=== PATIENT | male | born 1995 | race Hispanic/Latino ===

== ENCOUNTER 2017-09-15 09:06 | Observation (INO) | payer OTHER ==
[~2017-09-15] VITALS: Ht 160 cm; Wt 61.2 kg
[2017-09-15 09:34] LABS: BASO % 0.2 % (0.0-1.0); IMMATURE GRANULOCYTE % 0.5 % (0-0); LYMPH # 0.6 10^3/uL (1.5-6.5); MEAN CORPUSCULAR HEMOGLOBIN 29.3 pg (27.0-33.0); MEAN CORPUSCULAR HGB CONC 32.5 g/dl (32.0-36.5); MONO # 1.2 10^3/uL (0.0-0.8); MONO % 7.6 % (0.0-5.0); NEUTROPHILS # 13.3 10^3/uL (1.8-7.7); NEUTROPHILS % 87.7 % (36.0-66.0); PLATELET COUNT, AUTOMATED 163 10^3/uL (150-450); WHITE BLOOD COUNT 15.1 10^3/uL (4.0-10.0)
[2017-09-15 09:59] LABS: ANION GAP 6 MEQ/L (8-16); BLOOD UREA NITROGEN 15 MG/DL (7-18); CALCIUM LEVEL 8.6 MG/DL (8.5-10.1); CARBON DIOXIDE LEVEL 26 MEQ/L (21-32); CHLORIDE LEVEL 107 MEQ/L (98-107); CREATININE FOR GFR 1.95 MG/DL (0.70-1.30); FREE T4 1.32 NG/DL (0.78-1.33); GLUCOSE, FASTING 108 MG/DL (70-105); POTASSIUM SERUM 4.9 MEQ/L (3.5-5.1); SODIUM LEVEL 139 MEQ/L (136-145)
[2017-09-15] MEDS ORDERED: NS 1,000 ML IV ONE (10:15)
--- NOTE | 2017-09-15 10:15 | REP ---
Portable chest: Single view. History: Chest pain. Comparison study: No comparison. Findings: EKG monitoring electrodes overlie the chest. Lungs are well inflated and clear. Heart is not enlarged. Pulmonary vasculature is not increased. Impression: No significant abnormality. No active disease. Signed by Perry Solitario MD 09/15/2017 10:52 A
[2017-09-15 11:52] LABS: METHADONE URINE NEGATIVE (NEGATIVE)
[2017-09-15 13:55] LABS: ANION GAP 6 MEQ/L (8-16); BLOOD UREA NITROGEN 14 MG/DL (7-18); CALCIUM LEVEL 8.2 MG/DL (8.5-10.1); CARBON DIOXIDE LEVEL 28 MEQ/L (21-32); CHLORIDE LEVEL 109 MEQ/L (98-107); CREATININE FOR GFR 1.38 MG/DL (0.70-1.30); GLUCOSE, FASTING 93 MG/DL (70-105); POTASSIUM SERUM 4.9 MEQ/L (3.5-5.1); SODIUM LEVEL 143 MEQ/L (136-145)
[2017-09-15] MEDS ORDERED: BICILLIN L-A 2,400,000 UNIT/4 ML SYRINGE (J0561-24)PENICILLIN G BENZATINE IM ONE (14:45)
[2017-09-15] MEDS ORDERED: BICILLIN-CR 1,200,000 UNITS/2ML SYRINGE (J0558-12) IM ONE ×2 (15:00)
[2017-09-15] MEDS ORDERED: IBUPOTC PO (15:50)
--- NOTE | 2017-09-15 16:18 | HPEPDOC ---
General Date of Admission 09/15/17 Primary Care Physician: A Chief Complaint The patient is a 21-year-old male admitted with a reason for visit of Chest Pain. History of Present Illness PATIENT IS AN [employer]IVE [employer] ON PCP IS [facility] Mr. 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 He just drove from [place] where he was vacationing and got in late last night. Apparently he acutely woke up this AM with all of these symptoms. At [facility] he was noted to have an elevated heart rate as per the patient "into the 200s", he was transferred to our facility and en route was given adenosine 6 mg then 12 mg by EMS which apparently broke the sinus tachycardia. In the emergency department his EKG demonstrated normal sinus rhythm in the 80s, the patient's blood pressure was a bit hypotensive upon presentation 89/46 but improved after a bolus of normal saline to 128/63. On questioning the patient states that he does not have any chest discomfort or feelings of a racing heart but now describes a headache in the back of his head and states that he still feels a little bit lightheaded. He did not sustain LOC during these events and this has never happened to him before. The patient denies any history of recreational drug use, denies taking any sort of supplement, denies taking any medication at all. He quit smoking 2 years ago and does not use an alternative form of tobacco, he does not drink alcohol and he does not see a doctor routinely. He has no family history of cardiac events aside from his father having a stroke and paternal GF dieing of [place], no one has suddenly of unexpected causes in his family. 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 He also tells me he's had a sore throat for the past couple days, it is also red and associated with painful swallowing. He denies any problems with urinating, denies blood in his urine, increased frequency or pain with urination , describes normal bowel movements with no diarrhea or constipation, no pain with defecation or blood in his stool. Denies muscle aches, chills or fevers. He states he is no longer nauseous and he is able to eat without vomiting. He has no recent sick contacts and has not traveled outside the country. 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 Dyspnea, Edema Gastrointestinal: Reports: Nausea, Vomiting, Denies: Abdominal Pain, Diarrhea, Constipation, Melena, Hematochezia Genitourinary: Denies: Dysuria Musculoskeletal: Denies: Neck Pain Neurological: Denies: Weakness, Numbness, Incoordination, Change in speech Psych: Reports: Mood Normal Physical Examination General Exam: Positive: Alert, Cooperative, No Acute Distress Eye Exam: Positive: PERRLA, Conjunctiva & lids normal, EOMI, Negative: Sclera icteric ENT Exam: Positive: Atraumatic, Mucous membr. moist/pink, Pharynx Normal, Tongue Midline, Nares Patent, Negative: Pharyngeal Edema Neck Exam: Positive: Supple Chest Exam: Positive: Clear to auscultation, Normal air movement, Negative: Rales, Rhonchi, Wheezing, Diminished Heart Exam: Positive: Rate Normal, Normal S1, Normal S2, Negative: Tachycardic, Bradycardic, Gallops, Murmurs, Rubs Telemetry: Positive: No significant arrhythmia Abdomen Exam: Positive: Normal bowel sounds, Soft, Negative: Tenderness, Hepatospenomegaly Extremity Exam: Positive: Normal pulses, Negative: Clubbing, Cyanosis, Edema, Tenderness, Swelling Skin Exam: Negative: Rash Psych Exam: Positive: Mental status NL Vital Signs Vital Signs Date Time Temp Pulse Resp B/P (MAP) Pulse Ox O2 Delivery O2 Flow Rate FiO2 09/15/17 14:39 97.9 79 16 100 09/15/17 14:24 128/63 (84) 09/15/17 09:36 Room Air Laboratory Data Labs 24H Laboratory Tests 2 09/15/17 09:26: Immature Granulocyte % (Auto) 0.5H, White Blood Count 15.1H, Red Blood Count 4.20L, Hemoglobin 12.3L, Hematocrit 37.8L, Mean Corpuscular Volume 90.0, Mean Corpuscular Hemoglobin 29.3, Mean Corpuscular Hemoglobin Concent 32.5, Red Cell Distribution Width 12.0, Platelet Count 163, Neutrophils (%) (Auto) 87.7H, Lymphocytes (%) (Auto) 4.0L, Monocytes (%) (Auto) 7.6H, Eosinophils (%) (Auto) 0.0, Basophils (%) (Auto) 0.2, Neutrophils # (Auto) 13.3H, Lymphocytes # (Auto) 0.6L, Monocytes # (Auto) 1.2H, Eosinophils # (Auto) 0.0, Basophils # (Auto) 0.0 , Immature Granulocyte # (Auto) 0.1H, Nucleated Red Blood Cells % (auto) 0.0, Anion Gap 6L, Blood Urea Nitrogen 15, Creatinine 1.95H, Sodium Level 139, Potassium Level 4.9, Chloride Level 107, Carbon Dioxide Level 26, Calcium Level 8.6, Total Creatine Kinase 119, Magnesium Level 2.0, Creatine Kinase MB 4.4H, Creatine Kinase MB Relative Index 3.69, Troponin I 0.62H, Thyroid Stimulating Hormone (TSH) 1.020, Free Thyroxine 1.32 09/15/17 11:08: Urine Amphetamines Screen NEGATIVE, Urine Benzodiazepines Screen NEGATIVE, Urine Opiates Screen NEGATIVE, Urine Methadone Screen NEGATIVE, Urine Barbiturates Screen NEGATIVE, Urine Phencyclidine Screen NEGATIVE, Urine Cocaine Metabolite Screen NEGATIVE, Urine Cannabinoids Screen NEGATIVE 09/15/17 12:57: Anion Gap 6L, Blood Urea Nitrogen 14, Creatinine 1.38H, Sodium Level 143, Potassium Level 4.9, Chloride Level 109H, Carbon Dioxide Level 28, Calcium Level 8.2L, Total Creatine Kinase 208, Creatine Kinase MB 15.4H, Creatine Kinase MB Relative Index 7.40H, Troponin I 2.50#*H CBC/BMP Laboratory Tests 09/15/17 09:26 Red Blood Count 4.20 L, Mean Corpuscular Volume 90.0, Mean Corpuscular Hemoglobin 29.3, Mean Corpuscular Hemoglobin Concent 32.5, Red Cell Distribution Width 12.0, Neutrophils (%) (Auto) 87.7 H, Lymphocytes (%) (Auto) 4.0 L, Monocytes (%) (Auto) 7.6 H, Eosinophils (%) (Auto) 0.0, Basophils (%) ( Auto) 0.2, Neutrophils # (Auto) 13.3 H, Lymphocytes # (Auto) 0.6 L, Monocytes # (Auto) 1.2 H, Eosinophils # (Auto) 0.0, Basophils # (Auto) 0.0, Calcium Level 8.6, Total Creatine Kinase 119 09/15/17 12:57 Calcium Level 8.2 L, Total Creatine Kinase 208 Assessment/Plan 21 year-old male presents to the emergency department with complaint of chest pain and racing heart rate. 1. Chest pain with palpitations -possibly secondary to pericarditis -The patient's initial EKG a [facility] showed heart rate of 199, EKG was with a lot of artifact, do not think that this was real. -EKG in our emergency department demonstrated normal sinus rhythm with rates in the 80s, no concern for active ischemia -Initial troponin was 0.6 however repeat troponin was 2.50 -Patient received 1 L bolus normal saline in the emergency department for hypotension which brought him to 128/63 -We'll obtain echocardiogram and serial EKG, repeat EKG in a.m. -Trend cardiac markers -We'll begin metoprolol tartrate 12.5 mg every 6 hours and aspirin 81 daily -Admit to telemetry, observation 24 hours -He did just drive from [place], his kidney function is a bit off, will hold on CTA for now and obtain order d-dimer for now, further recommendation once results are in - Case discussed with Cardiology; troponin elevation unlikely to be related to coronary disease, more likely perimyocarditis; will not need transfer for cardiac catheterization - Cardiology (Dr. Begum) will be following; appreciate their input 2. Sore throat - Positive for strep -Patient received one dose of penicillin G in ED, will continue penicillin V 500 twice a day for a total of 10 days 3. Elevated troponin -Do not believe that this is ischemic in nature; unlikely coronary artery disease; will not need cardiac cath at this time -Could possibly be secondary to pericarditis -Echocardiogram, repeat cardiac markers, repeat EKG in a.m., telemetry observation 24 hours -Cardiology consulted , greatly appreciate their recommendations 4. TARA - Creatine elevated, 1.95 -1.95 now 1.38 - suspect 2/2 dehydration -c/w fluid hydration, NS @ 100 -avoid nephrotoxic meds Plan / VTE VTE Prophylaxis Ordered?: Yes GME ATTESTATION GME ATTESTATION My faculty preceptor for this patient encounter was physically present during the encounter and was fully available. All aspects of the patient interview, examination, medical decision making process, and medical care plan development were reviewed and approved by the faculty preceptor. The faculty preceptor is aware and concurs with the plan as stated in the body of this note and will attest to such by his/her cosignature. ATTENDING NOTE I, Santana Beaulieu, have both independently examined this patient as well as reviewed the documentation. I have discussed in detail with the resident the findings and plan of treatment as documented in the residents documentation. I will continue to follow the patient and offer further guidance to the patients care as necessary during this hospital stay. MCKAYLA SMALL DO Sep 15, 2017 16:18 SANTANA BEAULIEU MD Sep 19, 2017 15:50
[2017-09-15] MEDS ORDERED: ACETAMINOPHEN TAB 650MG DOSE (2X325MG) PO PRN (17:15)
[2017-09-15] MEDS ORDERED: METOPROLOL TART 25 MG TABLET PO ONE (18:00)
[2017-09-15] MEDS: ASPIRIN 81 MG ENTERIC TAB PO SCH (18:06)
[2017-09-15] MEDS: NS 1,000 ML IV SCH (18:07)
--- NOTE | 2017-09-15 18:55 | CR ---
DATE OF CONSULTATION: INDICATION: Elevated troponin SVT. 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 He felt very uncomfortable but tried to go back to sleep. But when his symptoms persisted and he had additional symptoms of nausea with vomiting and also shortness of breath and headache he eventually went to be checked at the [facility]. He was found to have tachycardia and ventricular rate between 170-200 beats per minute. Eventually though EMS was involved and he received adenosine that broke the rhythm and he converted into sinus rhythm. On the initial presentation to the ER, he was somewhat hypotensive, blood pressure 89/46, but after getting some bolus of normal saline rapidly improved. He tells me that when he received adenosine he had a sensation of chest pain but after it resolved. He felt immediately better and he now feels tired. He denies any residual chest discomfort and does not feel short of breath. His last few days were unremarkable other than him driving from [place]. It took him approximately 2 days and he slept in a car intermittently. He denies drinking any energy drinks other than a few cups of coffee. He also has had symptoms of sore throat. 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 No significant past medical history. MEDICATIONS: None. ALLERGIES: No allergies. PAST MEDICAL HISTORY: Negative. PAST SURGICAL HISTORY: Negative. FAMILY HISTORY: His father suffered a stroke in his mid 50s and his paternal grandfather had heart attack. SOCIAL HISTORY: The patient does not smoke and does not drink alcohol. On the review of systems he denies any recent fever, chills, nausea or vomiting, dyspnea, chest pain, palpitations, prior syncope or prior palpitations. All until history of present illness. PHYSICAL EXAMINATION: He is a pleasant young man who appears actually younger than his calendar age, alert and oriented and appropriate. No distress. In almost completely in horizontal position was actually sleeping when I walked in. Blood pressure 128/63, heart rate currently in 80s, sinus rhythm. Saturation is in high 90s up to 100% on room air. JVP is not up. I do not appreciate carotid bruit. No goiter. No cervical lymphadenopathy. Lungs are clear to auscultation with good air movement. Heart exam reveals nondisplaced precordial impulse. I do not appreciate any rub, gallop or murmur. Abdomen: Soft, nontender. He has no rebound tenderness. No peripheral edema. Good peripheral pulses. No skin lesions. Neurologically intact. LABORATORY: CBC reveals WBC count 15.1, hemoglobin 12.3, hematocrit 37.8 and platelet count 163,000. Basic metabolic panel on admission reveal normal electrolytes, but creatinine 1.95, troponin on admission was 0.62 with CK 119 and CK-MB 4.4 Followup 3 hours later revealed improvement of creatinine after bolus to 1.38 but the troponin is now up to 2.5. Total CK is 208 and CK-MB 15. TSH was normal. Chest x-ray was unremarkable. D-dimer is elevated. ECG from the initial presentation reveals narrow complex tachycardia with no discernible P-wave activity. In the emergency room he had brief run of 10 beats of wide complex tachycardia most likely a accelerated junctional tachycardia or accelerated junctional rhythm, asymptomatic. The ECG after conversion to sinus rhythm is unremarkable other than some minimal repolarization abnormalities suggestive of early repolarization. ASSESSMENT/PLAN: Mr. Cloud is a 21-year-old previously healthy man who presents with supraventricular tachycardia with a ventricular rate approaching 200 beats per minute of approximately 4 hours duration (patient reports onset 04:00 a.m., termination around 10-10:30). He was quite symptomatic with dizziness, sensation of chest discomfort and shortness of breath and almost near syncopal sensation. There was associated nausea and vomiting. After conversion to sinus mechanism he is back to normal other than feeling exhausted. What is surprising is the degree of troponin elevation which seems to be a little bit out of proportion for a 21-year-old man, even though I still do not suspect that there is a secondary pathologic process. I would recommend to continue the patient on telemetry at least for 24 hours. I would continue monitoring, serial CKs. Will obtain electrocardiogram tomorrow morning and an echocardiogram as well. I suspect it is possible that he might have perimyocarditis, even though I consider that less likely because he is completely asymptomatic after alevism of sinus mechanism. I would give him aspirin 81 mg daily and low-dose beta shy. Further management will depend on clinical course, if is of no further abnormalities are noted, I would discharge him on aspirin and low-dose beta shy at least for few weeks. I will see the patient with you tomorrow morning. Thank you for this referral. MADALYN
[2017-09-15 20:00] VITALS: BP 113/67
[2017-09-16] VITALS (7 sets, daily range): BP systolic 101–117; BP diastolic 50–73
--- NOTE | 2017-09-16 05:40 | ECGEPIP ---
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
--- NOTE | 2017-09-16 05:43 | ECGEPIP ---
Stationary ECG Study [facility] - ED Test Date: 2017-09-15 Pat Name: AURELIANO HERANNDEZ Department: Room: - Gender: M Operating Room Orderly: agatha : 1995 Requested By: Pee López Order Number: [id number] Reading MD: Pee Castro Measurements Intervals [place] Rate: 85 P: 6 VA: 143 QRS: -7 QRSD: 92 T: 30 QT: 351 QTc: 418 Interpretive Statements SINUS RHYTHM NONSPECIFIC T-WAVE ABNORMALITY SIMILAR TO PRIOR ON SAME DATE Electronically Signed On 09-16-2017 5:42:56 EST by Pee Castro
[2017-09-16] MEDS: NS 1,000 ML IV SCH ×3 (06:44→22:50)
[2017-09-16] MEDS: METOPROLOL TART 12.5 MG PER 1/2 TAB PO SCH ×4 (06:44→17:28)
[2017-09-16 07:07] LABS: BASO % 0.2 % (0.0-1.0); EOS # 0.1 10^3/uL (0.0-0.50); EOS % 0.7 % (0.0-3.0); IMMATURE GRANULOCYTE % 0.5 % (0-0); LYMPH # 1.8 10^3/uL (1.5-6.5); LYMPH % 20.5 % (24.0-44.0); MEAN CORPUSCULAR HEMOGLOBIN 29.6 pg (27.0-33.0); MEAN CORPUSCULAR HGB CONC 32.2 g/dl (32.0-36.5); MEAN CORPUSCULAR VOLUME 91.8 fl (80.0-96.0); MONO % 11.6 % (0.0-5.0); NEUTROPHILS # 5.7 10^3/uL (1.8-7.7); NEUTROPHILS % 66.5 % (36.0-66.0); PLATELET COUNT, AUTOMATED 155 10^3/uL (150-450); WHITE BLOOD COUNT 8.6 10^3/uL (4.0-10.0)
[2017-09-16 07:21] LABS: ANION GAP 4 MEQ/L (8-16); BLOOD UREA NITROGEN 11 MG/DL (7-18); CALCIUM LEVEL 8.6 MG/DL (8.5-10.1); CARBON DIOXIDE LEVEL 28 MEQ/L (21-32); CHLORIDE LEVEL 110 MEQ/L (98-107); CREATININE FOR GFR 0.89 MG/DL (0.70-1.30); GLUCOSE, FASTING 93 MG/DL (70-105); POTASSIUM SERUM 4.1 MEQ/L (3.5-5.1); SODIUM LEVEL 142 MEQ/L (136-145)
--- NOTE | 2017-09-16 08:46 | IPNPDOC ---
Subjective Date Seen The patient was seen on 09/16/17. Subjective Chief Complaint/HPI The patient is a 21-year-old male admitted with a reason for visit of Acute Streptococcal Pharyngitis. Events since last encounter feeling much bettr today . says feels some skipped beats. also complains of some sore throat however it is better than yesterday. No fever or chills, no chest pain or sob, no abdominal pain , nausea or vomiting or diarrhea. Objective Physical Examination General Exam: Positive: Alert, Cooperative, No Acute Distress Eye Exam: Positive: PERRLA, Conjunctiva & lids normal, EOMI, Negative: Sclera icteric ENT Exam: Positive: Atraumatic, Mucous membr. moist/pink, Pharynx Normal, Tongue Midline, Nares Patent, Negative: Pharyngeal Edema Neck Exam: Positive: Supple Chest Exam: Positive: Clear to auscultation, Normal air movement, Negative: Rales, Rhonchi, Wheezing, Diminished Heart Exam: Positive: Rate Normal, Normal S1, Normal S2, Negative: Tachycardic, Bradycardic, Gallops, Murmurs, Rubs Telemetry: Positive: No significant arrhythmia Abdomen Exam: Positive: Normal bowel sounds, Soft, Negative: Tenderness, Hepatospenomegaly Extremity Exam: Positive: Normal pulses, Negative: Clubbing, Cyanosis, Edema, Tenderness, Swelling Skin Exam: Negative: Rash Psych Exam: Positive: Mental status NL Assessment /Plan Problems (1) PSVT (paroxysmal supraventricular tachycardia) Status: Resolved Problem Text: resolved prior to coming to the hospital with adenosine given by EMS. started on betablocker. (2) TARA (acute kidney injury) Status: Acute Response to Treatment: Improving Problem Text: possibly transient ischemia during PSVT with hypotension. improving willcontinue to monitor. (3) Elevated troponin Status: Acute Problem Text: May have perimyocarditis. 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 (4) Acute streptococcal pharyngitis Status: Acute Problem Text: received penicillin in the ED. (5) Leucocytosis Status: Acute Problem Text: most probably reactive. Plan/VTE VTE Prophylaxis Ordered?: Yes VS, I&O, 24H, Fishbone Vital Signs/I&O Vital Signs Date Time Temp Pulse Resp B/P (MAP) Pulse Ox O2 Delivery O2 Flow Rate FiO2 09/16/17 06:44 77 108/51 09/16/17 04:00 97.4 16 100 Room Air Laboratory Data 24H LABS Laboratory Tests 2 09/15/17 09:26: Immature Granulocyte % (Auto) 0.5H, White Blood Count 15.1H, Red Blood Count 4.20L, Hemoglobin 12.3L, Hematocrit 37.8L, Mean Corpuscular Volume 90.0, Mean Corpuscular Hemoglobin 29.3, Mean Corpuscular Hemoglobin Concent 32.5, Red Cell Distribution Width 12.0, Platelet Count 163, Neutrophils (%) (Auto) 87.7H, Lymphocytes (%) (Auto) 4.0L, Monocytes (%) (Auto) 7.6H, Eosinophils (%) (Auto) 0.0, Basophils (%) (Auto) 0.2, Neutrophils # (Auto) 13.3H, Lymphocytes # (Auto) 0.6L, Monocytes # (Auto) 1.2H, Eosinophils # (Auto) 0.0, Basophils # (Auto) 0.0 , Immature Granulocyte # (Auto) 0.1H, Nucleated Red Blood Cells % (auto) 0.0, D- Dimer, Quantitative 1218.8H, Anion Gap 6L, Blood Urea Nitrogen 15, Creatinine 1.95H, Sodium Level 139, Potassium Level 4.9, Chloride Level 107, Carbon Dioxide Level 26, Calcium Level 8.6, Total Creatine Kinase 119, Magnesium Level 2.0, Creatine Kinase MB 4.4H, Creatine Kinase MB Relative Index 3.69, Troponin I 0.62H, Thyroid Stimulating Hormone (TSH) 1.020, Free Thyroxine 1.32 09/15/17 11:08: Urine Amphetamines Screen NEGATIVE, Urine Benzodiazepines Screen NEGATIVE, Urine Opiates Screen NEGATIVE, Urine Methadone Screen NEGATIVE, Urine Barbiturates Screen NEGATIVE, Urine Phencyclidine Screen NEGATIVE, Urine Cocaine Metabolite Screen NEGATIVE, Urine Cannabinoids Screen NEGATIVE 09/15/17 12:57: Anion Gap 6L, Blood Urea Nitrogen 14, Creatinine 1.38H, Sodium Level 143, Potassium Level 4.9, Chloride Level 109H, Carbon Dioxide Level 28, Calcium Level 8.2L, Total Creatine Kinase 208, Creatine Kinase MB 15.4H, Creatine Kinase MB Relative Index 7.40H, Troponin I 2.50#*H 09/15/17 19:03: Troponin I 4.01#*H 09/16/17 01:07: Troponin I 3.56*H 09/16/17 06:47: Immature Granulocyte % (Auto) 0.5H, White Blood Count 8.6, Red Blood Count 3.65L , Hemoglobin 10.8L, Hematocrit 33.5L, Mean Corpuscular Volume 91.8, Mean Corpuscular Hemoglobin 29.6, Mean Corpuscular Hemoglobin Concent 32.2, Red Cell Distribution Width 12.0, Platelet Count 155, Neutrophils (%) (Auto) 66.5H, Lymphocytes (%) (Auto) 20.5L, Monocytes (%) (Auto) 11.6H, Eosinophils (%) (Auto ) 0.7, Basophils (%) (Auto) 0.2, Neutrophils # (Auto) 5.7, Lymphocytes # (Auto) 1.8, Monocytes # (Auto) 1.0H, Eosinophils # (Auto) 0.1, Basophils # (Auto) 0.0, Immature Granulocyte # (Auto) 0.0, Nucleated Red Blood Cells % (auto) 0.0, Anion Gap 4L, Blood Urea Nitrogen 11, Creatinine 0.89, Sodium Level 142, Potassium Level 4.1, Chloride Level 110H, Carbon Dioxide Level 28, Calcium Level 8.6 CBC/BMP Laboratory Tests 09/15/17 09:26 Red Blood Count 4.20 L, Mean Corpuscular Volume 90.0, Mean Corpuscular Hemoglobin 29.3, Mean Corpuscular Hemoglobin Concent 32.5, Red Cell Distribution Width 12.0, Neutrophils (%) (Auto) 87.7 H, Lymphocytes (%) (Auto) 4.0 L, Monocytes (%) (Auto) 7.6 H, Eosinophils (%) (Auto) 0.0, Basophils (%) ( Auto) 0.2, Neutrophils # (Auto) 13.3 H, Lymphocytes # (Auto) 0.6 L, Monocytes # (Auto) 1.2 H, Eosinophils # (Auto) 0.0, Basophils # (Auto) 0.0, Calcium Level 8.6, Total Creatine Kinase 119 09/15/17 12:57 Calcium Level 8.2 L, Total Creatine Kinase 208 09/16/17 06:47 Red Blood Count 3.65 L, Mean Corpuscular Volume 91.8, Mean Corpuscular Hemoglobin 29.6, Mean Corpuscular Hemoglobin Concent 32.2, Red Cell Distribution Width 12.0, Neutrophils (%) (Auto) 66.5 H, Lymphocytes (%) (Auto) 20.5 L, Monocytes (%) (Auto) 11.6 H, Eosinophils (%) (Auto) 0.7, Basophils (%) ( Auto) 0.2, Neutrophils # (Auto) 5.7, Lymphocytes # (Auto) 1.8, Monocytes # (Auto ) 1.0 H, Eosinophils # (Auto) 0.1, Basophils # (Auto) 0.0, Calcium Level 8.6 ALEJANDRO OROSCO MD Sep 16, 2017 08:46
--- NOTE | 2017-09-16 08:57 | IPN ---
DATE: 09/16/2017 The patient has had an uneventful course since yesterday. He denies any symptoms including dyspnea, palpitations or chest pain. He was able to sleep without difficulty. His vital signs this morning blood pressure 108/51, heart rate has been 70s. He is afebrile. Saturation 100% on room air. No weight documentation this morning yet. He is alert and oriented and appropriate. His jugular venous pressure is not up. Lungs are clear with good air movement. Heart exam regular rhythm. I would do not appreciate any gallop, rub or murmur even with positioning the patient in different ways. No peripheral edema. Neurologically , he is intact. LABORATORY: CBC: Hemoglobin 10.9, hematocrit 33, platelet count is 155,000. WBC count is down to 8.6. Basic metabolic panel is normal. His troponin peaked yesterday evening at 4.0. ECG this morning is normal. ASSESSMENT/PLAN Mr. Ojeda is a 21-year-old man with no significant past medical history who presented with narrow complex tachycardia, ventricular rate approaching 200 beats per minute of approximately 4-4.5 hours duration. After conversion to sinus rhythm with adenosine, his symptoms almost immediately resolved, somewhat surprisingly though he had elevated troponin that reached over 4 that seems to me a little bit excessive even with this degree of tachycardia in a young man. I suspect that he might have some inflammatory pericardial process. I think it would be prudent to monitor the patient for one more day considering the magnitude of troponin elevation. His echocardiogram is pending, and I will get another ECG tomorrow morning. I tentatively presume that he will be able to be discharged tomorrow. I would still keep him on profile and relative inactivity for at least 2 or 3 weeks. 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 MADALYN
[2017-09-16] MEDS: ASPIRIN 81 MG ENTERIC TAB PO SCH (09:00)
--- NOTE | 2017-09-16 22:09 | ECHO ---
DATE OF PROCEDURE: 09/16/2017 REFERRING PHYSICIAN: Angle Ruggiero MD INDICATION: Chest pain, elevated troponin. HEIGHT: 160 cm WEIGHT: 60 kg DIMENSIONS: IVS: 0.8 LV: 4.7 LVPW: 0.8 LA: 3.7 Aorta: 2.6 FINDINGS: The study is of good technical quality. Left ventricle is normal size and systolic function with estimated ejection fraction (EF) 60-65%. No segmental wall motion abnormalities are appreciated. Right ventricle is also normal size and systolic function. Both atria are normal. All four valves were reasonably well seen and appear normal. No pericardial effusion is present. Inferior vena cava is normal size. Aortic root, aortic arch and visualized segment of abdominal aorta all appear normal. Doppler interrogation reveals no aortic stenosis or insufficiency. There is trace mitral insufficiency and trace tricuspid insufficiency. Calculated pulmonary artery pressure is within normal limits. Pulmonic valve is also trivial insufficient. Mitral inflow pattern and tissue Doppler imaging of mitral annulus reveal normal diastolic function. CONCLUSION: Normal echocardiogram. COMMENT: Subacute bacterial endocarditis (SBE) prophylaxis is not recommended.
[2017-09-17 00:45] VITALS: BP 117/58
[2017-09-17] MEDS: METOPROLOL TART 12.5 MG PER 1/2 TAB PO SCH ×2 (00:45→06:00)
[2017-09-17 04:00] VITALS: BP 112/53
[2017-09-17 05:42] LABS: BASO % 0.3 % (0.0-1.0); EOS # 0.1 10^3/uL (0.0-0.50); EOS % 1.2 % (0.0-3.0); IMMATURE GRANULOCYTE % 0.3 % (0-0); LYMPH # 1.7 10^3/uL (1.5-6.5); LYMPH % 24.8 % (24.0-44.0); MEAN CORPUSCULAR HEMOGLOBIN 28.8 pg (27.0-33.0); MEAN CORPUSCULAR HGB CONC 31.9 g/dl (32.0-36.5); MEAN CORPUSCULAR VOLUME 90.2 fl (80.0-96.0); MONO # 0.6 10^3/uL (0.0-0.8); MONO % 8.4 % (0.0-5.0); NEUTROPHILS # 4.5 10^3/uL (1.8-7.7); PLATELET COUNT, AUTOMATED 178 10^3/uL (150-450); RED CELL DISTRIBUTION WIDTH 12.1 % (11.5-14.5); WHITE BLOOD COUNT 6.9 10^3/uL (4.0-10.0)
[2017-09-17 06:02] LABS: ANION GAP 5 MEQ/L (8-16); BLOOD UREA NITROGEN 11 MG/DL (7-18); CALCIUM LEVEL 8.7 MG/DL (8.5-10.1); CARBON DIOXIDE LEVEL 30 MEQ/L (21-32); CHLORIDE LEVEL 108 MEQ/L (98-107); CREATININE FOR GFR 0.87 MG/DL (0.70-1.30); GLUCOSE, FASTING 88 MG/DL (70-105); SODIUM LEVEL 143 MEQ/L (136-145)
[2017-09-17] MEDS ORDERED: ASPI81TAEC PO (08:13)
[2017-09-17] MEDS ORDERED: METO1TAB87 PO (08:13)
[2017-09-17] MEDS: ASPIRIN 81 MG ENTERIC TAB PO SCH (08:39)
--- NOTE | 2017-09-17 08:40 | IPN ---
DATE: 09/17/2017 Mr. Ojeda had good night and day yesterday. He had no problems, felt fine. He had no arrhythmias on telemetry. His echocardiogram was normal. Vital signs this morning, blood pressure 112/53, heart rate mostly in 60s, afebrile. Saturation 100%. Alert, oriented and appropriate. Lungs are clear. Heart exam is unremarkable, and neurologically he is intact. Laboratory pereira, CBC is normal but for mild anemia with hemoglobin 11.2, Basic metabolic panel is normal as well. His troponin yesterday morning was 2.6. ASSESSMENT/PLAN: Mr. Ojeda is a 21-year-old man who presented with strep pharyngitis associated with supraventricular tachycardia (SVT) that lasted approximately 4-1/2 hours and converted with use of adenosine. He was kept in hospital mostly because elevated troponin that peaked slightly over 4. He did not have any ischemic abnormalities on EKG and his echocardiogram was completely normal. It is a little unusual to have this high troponin elevation in a young man who is otherwise completely healthy. Consequently, we will keep him on a profile for at least 2 weeks and I will bring him for a stress test to the office before allowing him to resume activity. I told the patient that if he has a relapse of palpitations to come back to the hospital.
[2017-09-17 09:00] VITALS: BP 122/66
--- NOTE | 2017-09-17 10:39 | ECGEPIP ---
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
--- NOTE | 2017-09-17 11:29 | IPNPDOC ---
Subjective Date Seen The patient was seen on 09/17/17. Subjective Chief Complaint/HPI The patient is a 21-year-old male admitted with a reason for visit of Acute Streptococcal Pharyngitis. Events since last encounter No complaints this morning, sore throat improved. no further episodes or SVT. no fever or chills, no chest pain or SOB Objective Physical Examination General Exam: Positive: Alert, Cooperative, No Acute Distress Eye Exam: Positive: PERRLA, Conjunctiva & lids normal, EOMI, Negative: Sclera icteric ENT Exam: Positive: Atraumatic, Mucous membr. moist/pink, Pharynx Normal, Tongue Midline, Nares Patent, Negative: Pharyngeal Edema Neck Exam: Positive: Supple Chest Exam: Positive: Clear to auscultation, Normal air movement, Negative: Rales, Rhonchi, Wheezing, Diminished Heart Exam: Positive: Rate Normal, Normal S1, Normal S2, Negative: Tachycardic, Bradycardic, Gallops, Murmurs, Rubs Telemetry: Positive: No significant arrhythmia Abdomen Exam: Positive: Normal bowel sounds, Soft, Negative: Tenderness, Hepatospenomegaly Extremity Exam: Positive: Normal pulses, Negative: Clubbing, Cyanosis, Edema, Tenderness, Swelling Skin Exam: Negative: Rash Psych Exam: Positive: Mental status NL Assessment /Plan Problems (1) PSVT (paroxysmal supraventricular tachycardia) Status: Resolved Problem Text: resolved prior to coming to the hospital with adenosine given by EMS. started on betablocker and asa as per cardiology recommendation. (2) TARA (acute kidney injury) Status: Resolved Problem Text: possibly transient ischemia during PSVT with hypotension. now resolved. (3) Elevated troponin Status: Acute Problem Text: May have perimyocarditis. 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 Echo normal. continue betablocker and asa. patient should refrain from PT for at least 2 weeks. Patient should be on profile till seen by lard tub washer and cleared for PT. Patient needs a stress test which will be done by the lard tub washer as an outpatient. (4) Acute streptococcal pharyngitis Status: Acute Problem Text: received benzathine penicillin in the ED. (5) Leucocytosis Status: Resolved Problem Text: most probably reactive. Plan/VTE VTE Prophylaxis Ordered?: Yes Disposition patient discharged home. VS[facility] Vital Signs/I&O Vital Signs Date Time Temp Pulse Resp B/P (MAP) Pulse Ox O2 Delivery O2 Flow Rate FiO2 09/17/17 09:00 98.3 77 18 122/66 (84) 98 Room Air I&O- Last 24 Hours up to 6 AM 09/18/17 06:00 Intake Total 300 ml Balance 300 ml Laboratory Data 24H LABS Laboratory Tests 2 09/17/17 05:25: Immature Granulocyte % (Auto) 0.3H, White Blood Count 6.9, Red Blood Count 3.89L , Hemoglobin 11.2L, Hematocrit 35.1L, Mean Corpuscular Volume 90.2, Mean Corpuscular Hemoglobin 28.8, Mean Corpuscular Hemoglobin Concent 31.9L, Red Cell Distribution Width 12.1, Platelet Count 178, Neutrophils (%) (Auto) 65.0, Lymphocytes (%) (Auto) 24.8, Monocytes (%) (Auto) 8.4H, Eosinophils (%) (Auto) 1.2, Basophils (%) (Auto) 0.3, Neutrophils # (Auto) 4.5, Lymphocytes # (Auto) 1.7, Monocytes # (Auto) 0.6, Eosinophils # (Auto) 0.1, Basophils # (Auto) 0.0, Immature Granulocyte # (Auto) 0.0, Nucleated Red Blood Cells % (auto) 0.0, Anion Gap 5L, Blood Urea Nitrogen 11, Creatinine 0.87, Sodium Level 143, Potassium Level 4.0, Chloride Level 108H, Carbon Dioxide Level 30, Calcium Level 8.7 CBC/BMP Laboratory Tests 09/17/17 05:25 Red Blood Count 3.89 L, Mean Corpuscular Volume 90.2, Mean Corpuscular Hemoglobin 28.8, Mean Corpuscular Hemoglobin Concent 31.9 L, Red Cell Distribution Width 12.1, Neutrophils (%) (Auto) 65.0, Lymphocytes (%) (Auto) 24.8, Monocytes (%) (Auto) 8.4 H, Eosinophils (%) (Auto) 1.2, Basophils (%) ( Auto) 0.3, Neutrophils # (Auto) 4.5, Lymphocytes # (Auto) 1.7, Monocytes # (Auto ) 0.6, Eosinophils # (Auto) 0.1, Basophils # (Auto) 0.0, Calcium Level 8.7 ALEJANDRO OROSCO MD Sep 17, 2017 11:29
--- NOTE | 2017-09-17 21:32 | ECGEPIP ---
Stationary ECG Study 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
== END 2017-09-17 10:20 | disposition home or self-care (01) ==
LOC: EDBD 09:06 → M ED 09:06 → M ED INP 16:07 → M PCU 09-16 12:01
PROVIDERS: ADMIT Internal Medicine; ATTEND Internal Medicine Nephrology
DX: J02.0 Streptococcal pharyngitis (principal); I47.1 Supraventricular tachycardia; N17.9 Acute kidney failure, unspecified; R79.89 Other specified abnormal findings of blood chemistry; D72.829 Elevated white blood cell count, unspecified; Z79.82 Long term (current) use of aspirin; Z79.899 Other long term (current) drug therapy
CPT/HCPCS: 36415; 71010; 80048; 80307; 82550; 82553; 83735; 84439; 84443; 85025; 85379; 87880; 93005; 93041; 93306; 94760; 96360; 96361; 96372; 99285; J0558